=== PATIENT | female | born 1990 | race African-American/Black ===

== ENCOUNTER 2018-08-31 14:38 | Emergency (ER) | payer OTHER, MEDICAID, SELFPAY ==
[2018-08-31 14:45] VITALS: BP 130/73; PULSE 80; RESP 18; TEMP 36.8; O2SAT 100; BMI 47.7
--- NOTE | 2018-08-31 15:13 | ED.PREGNANCY ---
HPI - <MUMTAZ Everett - Last Filed: 08/31/18 21:50> General Chief complaint: Vaginal Bleeding Stated complaint: 9wks preg,spotting Time Seen by Provider: 08/31/18 15:13 Source: patient Mode of arrival: ambulatory Limitations: no limitations History of Present Illness HPI Narrative: 28-year-old healthy female that is an everyday smoker currently approximately 9 weeks she is 2 para 1. she is here for complaint of having vaginal bleeding earlier today that started early this morning around 330. she reports that it was slightly more bleeding than spotting. She reports that the bleeding has slowed down as of now. She also reports having pelvic cramping. She denies passing any tissue. She denies any trauma to the area. No urinary symptoms. She states last bowel movement was earlier today and was unremarkable. She reports that she had a small amount of bleeding earlier in the however this was resolved. She reports that she has had any ultrasound shows a healthy intrauterine . She denies any other concerns or complaints at this time. Complaint: vaginal bleeding Patient : Yes Related Data Home Medications Medication Instructions Recorded Confirmed No Known Home Medications 08/31/18 08/31/18 Allergies Allergy/AdvReac Type Severity Reaction Status Date / Time Penicillins Allergy Unknown Verified 08/31/18 17:40 Review of Systems <MUMTAZ Everett - Last Filed: 08/31/18 21:50> Constitutional Denies chills, Denies fever(s), Denies lethargy and Denies weakness Eyes Denies change in vision, Denies eye discharge, Denies irritation and Denies loss of vision ENT Ears, Nose, Mouth, and Throat: Denies change in voice, Denies neck pain and Denies sore throat Cardiovascular Denies chest pain, Denies irregular heart rhythm, Denies lightheadedness, Denies palpitations, Denies dyspnea, Denies dyspnea on exertion and Denies orthopnea Respiratory Denies cough, Denies dyspnea, Denies dyspnea on exertion and Denies wheezing Genitourinary Comments: Vaginal bleeding Musculoskeletal Denies neck pain Integumentary/Breasts Denies pruritus, Denies erythema, Denies rash and Denies wounds Neurologic Denies confusion, Denies loss of vision and Denies weakness Psychiatric Denies anxiety, Denies confusion, Denies depression, Denies homicidal ideation and Denies suicidal ideation Endocrine Denies palpitations Hematologic/Lymphatic Denies easy bruising Allergic/Immunologic Denies wheezing PMFSH - <MUMTAZ Everett - Last Filed: 08/31/18 21:50> Past Medical History Medical history: Reports no medical history Surgical history: Reports no surgical history Patient : Yes Psychiatric history: Reports no psych history Family history: Reports no significant family history Exam <MUMTAZ Everett - Last Filed: 08/31/18 21:50> Initial Vital Signs Initial Vital Signs: Vital Signs Temperature 98.3 F 08/31/18 14:45 Pulse Rate 80 08/31/18 14:45 Respiratory Rate 18 08/31/18 14:45 Blood Pressure 130/73 08/31/18 14:45 Pulse Oximetry 100 08/31/18 14:45 Const General: cooperative and well developed Nutritional Appearance: well nourished Orientation: alert, awake, oriented x3 and not confused HENMT Mouth: oral mucosae normal and moist mucous membranes Eyes Conjunctivae: conjunctivae normal Sclera: sclerae normal Pupils: PERRL EOM: EOM intact bilaterally Resp Effort & Inspection: normal respiratory effort, able to speak in complete sentences, no respiratory distress and no use of accessory muscles Auscultation: clear to auscultation bilaterally, no rales, no rhonchi and no wheezes Cardio Rate: regular rate Rhythm: regular rhythm Heart Sounds: no click, no gallops, no murmurs and no rubs Pulses: normal peripheral pulses GI Inspection: non-distended Palpation: soft, no hepatosplenomegaly, No guarding, No pulsatile mass and No tender Auscultation: normal bowel sounds General: No CVA tenderness Skin General: no rashes or lesions noted, No jaundice and No petechiae Neuro General: alert, oriented x3, gait normal and no focal motor deficits Speech: speech normal <Anthony Johnson DO - Last Filed: 09/01/18 07:15> Initial Vital Signs Initial Vital Signs: Vital Signs Temperature 98.3 F 08/31/18 14:45 Pulse Rate 80 08/31/18 14:45 Respiratory Rate 18 08/31/18 14:45 Blood Pressure 130/73 08/31/18 14:45 Pulse Oximetry 100 08/31/18 14:45 Course <MUMTAZ Everett - Last Filed: 08/31/18 21:50> Orders Ordered: ED Orders 08/31/18 16:10 US OB <= 14 weeks fetus Stat 08/31/18 16:17 ABO RH Type Stat Complete Blood Count AUTO DIFF Stat Comprehensive Metabolic Panel Stat HCG Quantitative Stat Vital Signs - 8 hr 08/31/18 14:45 Temperature 98.3 F Pulse Rate 80 Respiratory Rate 18 Blood Pressure 130/73 Pulse Oximetry 100 <Anthony Johnson DO - Last Filed: 09/01/18 07:15> Orders Ordered: ED Orders 08/31/18 16:10 US OB <= 14 weeks fetus Stat 08/31/18 16:17 ABO RH Type Stat Complete Blood Count AUTO DIFF Stat Comprehensive Metabolic Panel Stat HCG Quantitative Stat Vital Signs - 8 hr 08/31/18 14:45 Temperature 98.3 F Pulse Rate 80 Respiratory Rate 18 Blood Pressure 130/73 Pulse Oximetry 100 MDM - OB/Uterine Contractions <MUMTAZ Everett - Last Filed: 08/31/18 21:50> Lab Data Result diagrams: 08/31/18 16:17 08/31/18 16:17 Lab Results 08/31/18 08/31/18 08/31/18 Range/Units 16:17 16:17 16:17 WBC 15.5 H (4.5-11.0) X10^3/uL RBC 4.38 (4.0-5.2) X10^6/uL Hgb 10.9 L (12.0-16.0) g/dL Hct 34.1 L (36-46) % MCV 78.0 L (80-100) fL MCH 24.9 L (26-34) PG MCHC 31.9 (30-36) % RDW 17.0 H (11.6-14.8) % Plt Count 400 (150-400) X10^3/uL Neut % (Auto) 70.0 (50-75) % Lymph % (Auto) 18.4 L (25-40) % [place] % (Auto) 7.1 (3-14) % Eos % (Auto) 3.5 (2-4) % Baso % (Auto) 1.0 (0-2) % Neut # (Auto) 43878 H (9640-0223) /uL Sodium 141 (137-145) mmol/L Potassium 4.3 (3.4-5.1) mmol/L Chloride 103 (98-107) mmol/L Carbon Dioxide 26 (22-32) mmol/L BUN 6 L (7-17) mg/dL Creatinine 0.50 L (0.52-1.04) mg/dL Estimated GFR > 60.0 (>60) mL/min BUN/Creatinine Ratio 12.0 (6-22) Glucose 82 (70-100) mg/dL Calcium 9.0 (8.4-10.2) mg/dL Total Bilirubin 0.2 (0.2-1.3) mg/dL AST 24 (14-36) IU/L ALT 30 (9-52) IU/L Alkaline Phosphatase 67 (38-126) U/L Total Protein 7.7 (6.3-8.2) g/dL Albumin 4.2 (3.5-5.0) g/dL Globulin 3.5 (1.7-4.1) g/dL Albumin/Globulin Ratio 1.2 (1.0-2.8) HCG, Quant 11649 mIU/mL Blood Type O Positive Point of Care Testing Test Results Positive Urine Dip Bedside Urine Glucose Negative Bedside Urine Bilirubin - Negative Bedside Urine Ketone - Negative Urine Specific [place] 1.015 Bedside Urine Occult Blood - Negative Bedside Urine pH 7.0 Bedside Urine Protein - Negative Bedside Urine Urobilinogen - Negative Bedside Urine Nitrite - Negative Bedside Urine Leukocytes - Negative Esterase MDM Narrative Medical decision making narrative: CBC shows elevated white count and neutrophils most likely secondary to . H&H shows mild anemia. CBC otherwise unremarkable. Chemistry panel was obtained was negative for any acute findings. HCG quant was at 51 k. Blood type is O positive. of Ob ultrasound shows healthy intrauterine with normal heart rate with gestational age of approximately 10 weeks 5 days and estimated delivery date of March 24. Will have patient follow up with OB here in the next couple of days for re-evaluation. Pelvic rest. [id number] Tylenol as needed for any discomfort. For any worsening symptoms return to the emergency room. Pelvic ultrasound also shows a small perigestational subchorionic hematoma. <Anthony Johnson DO - Last Filed: 09/01/18 07:15> Lab Data Lab Results 08/31/18 08/31/18 08/31/18 Range/Units 16:17 16:17 16:17 WBC 15.5 H (4.5-11.0) X10^3/uL RBC 4.38 (4.0-5.2) X10^6/uL Hgb 10.9 L (12.0-16.0) g/dL Hct 34.1 L (36-46) % MCV 78.0 L (80-100) fL MCH 24.9 L (26-34) PG MCHC 31.9 (30-36) % RDW 17.0 H (11.6-14.8) % Plt Count 400 (150-400) X10^3/uL Neut % (Auto) 70.0 (50-75) % Lymph % (Auto) 18.4 L (25-40) % [place] % (Auto) 7.1 (3-14) % Eos % (Auto) 3.5 (2-4) % Baso % (Auto) 1.0 (0-2) % Neut # (Auto) 27293 H (2453-9627) /uL Sodium 141 (137-145) mmol/L Potassium 4.3 (3.4-5.1) mmol/L Chloride 103 (98-107) mmol/L Carbon Dioxide 26 (22-32) mmol/L BUN 6 L (7-17) mg/dL Creatinine 0.50 L (0.52-1.04) mg/dL Estimated GFR > 60.0 (>60) mL/min BUN/Creatinine Ratio 12.0 (6-22) Glucose 82 (70-100) mg/dL Calcium 9.0 (8.4-10.2) mg/dL Total Bilirubin 0.2 (0.2-1.3) mg/dL AST 24 (14-36) IU/L ALT 30 (9-52) IU/L Alkaline Phosphatase 67 (38-126) U/L Total Protein 7.7 (6.3-8.2) g/dL Albumin 4.2 (3.5-5.0) g/dL Globulin 3.5 (1.7-4.1) g/dL Albumin/Globulin Ratio 1.2 (1.0-2.8) HCG, Quant 68756 mIU/mL Blood Type O Positive Point of Care Testing Test Results Positive Urine Dip Bedside Urine Glucose Negative Bedside Urine Bilirubin - Negative Bedside Urine Ketone - Negative Urine Specific [place] 1.015 Bedside Urine Occult Blood - Negative Bedside Urine pH 7.0 Bedside Urine Protein - Negative Bedside Urine Urobilinogen - Negative Bedside Urine Nitrite - Negative Bedside Urine Leukocytes - Negative Esterase Discharge Plan Departure Patient Disposition: Home Clinical Impression: Threatened Discharge Date/Time: 08/31/18 18:40 Interventions: ED Discharge Assessment Last Done: 08/31/18 18:39 Instructions: DI for Threatened Activity Restrictions/Additional Instructions: laboratory results today show mild anemia otherwise is unremarkable. OB ultrasound shows intrauterine of approximately 10 weeks 5 days gestational age. This places delivery date at March 24. ultrasound also shows a small subchorionic hematoma. there is a risk for a threatened . Pelvic rest. Follow up with her OB in the next couple days for re-evaluation. For any worsening symptoms return emergency room. Use [id number] Tylenol as needed for any disc Prescriptions: No Action No Known Home Medications RF: 0 Referrals: [facility] [Provider Group] Stand Alone Forms: Work/School Restrictions <Anthony Johnson DO - Last Filed: 09/01/18 07:15> Cosign ED Attending Carmelita Attestation: I was available for consultation during this patient's emergency department encounter
--- NOTE | 2018-08-31 16:10 | DI.US.S_ITS ---
PROCEDURE: US OB <= 14 WEEKS FETUS INDICATIONS: Vaginal spotting/ bleeding and cramping approximately 9 wk OUTSIDE/PRIOR DATING DATA: Last menstrual period (LMP): 06/19/18. LMP-based estimated date of delivery (TYRON): 03/26/19. First dating scan (date and location): 08/31/18. Estimated date of delivery (TYRON) from first dating scan: 03/24/19. TECHNIQUE: Real-time scanning was performed of the fetus and maternal pelvic organs, with image documentation. Endovaginal scanning was also performed to better visualize the fetus and maternal ovaries. COMPARISON: None. FINDINGS: Embryo: There is an intrauterine with a gestational sac, yolk sac, and pole identified. There is heart motion with a rate of 173 beats per minute. The crown-rump length measures 3.8 cm corresponding to a gestational age of 10 weeks 5 days. There is a small subchorionic hemorrhage measuring approximately 2.2 x 1.0 x 1.4 cm. Measurement variability in dating: +/- 4 weeks by LMP, +/- 7 days by mean sac diameter (use before 6 weeks gestation if crown-rump length not able to be measured), +/- 5 days by crown-rump length (up to 8 weeks 6 days gestation), +/- 7 days by crown-rump length (up to 13 weeks 6 days gestation). Maternal organs: Ovaries were not well-visualized. Limited images through the kidneys demonstrate no hydronephrosis. IMPRESSION: 1. Single living intrauterine with calculated gestational age of 10 weeks 5 days corresponding to an estimated delivery date of 03/24/19, concordant with patient's dates by LMP. 2. Small perigestational subchorionic hematoma. Dictated by: Jimmy Dai M.D. on 08/31/2018 at 18:08 Approved by: Jimmy Dai M.D. on 08/31/2018 at 18:11
[2018-08-31 16:31] LABS: Add Manual Diff / Slide Review NO; Eosinophils Percent Auto 3.5 % (2-4); Hematocrit 34.1 % (36-46); Hemoglobin 10.9 g/dL (12.0-16.0); Lymphocytes Percent Auto 18.4 % (25-40); Mean Corpuscular HGB Conc 31.9 % (30-36); Mean Corpuscular Hemoglobin 24.9 PG (26-34); Monocytes Percent Auto 7.1 % (3-14); Neutrophils Absolute Auto 10800 /uL (3000-5900); Platelet Count 400 X10^3/uL (150-400); Red Blood Cell Count 4.38 X10^6/uL (4.0-5.2); White Blood Cell Count 15.5 X10^3/uL (4.5-11.0)
[2018-08-31 16:38] LABS: Alanine Aminotransferase 30 IU/L (9-52); Albumin 4.2 g/dL (3.5-5.0); Albumin Globulin Ratio 1.2 (1.0-2.8); Alkaline Phosphatase 67 U/L (38-126); Aspartate Aminotransferase 24 IU/L (14-36); Bilirubin Total 0.2 mg/dL (0.2-1.3); Blood Urea Nitrogen 6 mg/dL (7-17); Carbon Dioxide 26 mmol/L (22-32); Chloride 103 mmol/L (98-107); Estimated Glomerular Filt Rate > 60.0 mL/min (>60); Globulin 3.5 g/dL (1.7-4.1); Glucose 82 mg/dL (70-100); HEMOLYSIS < 15 (0-50); Potassium 4.3 mmol/L (3.4-5.1); Sodium 141 mmol/L (137-145); Total Protein 7.7 g/dL (6.3-8.2)
[2018-08-31 17:18] LABS: HCG Quantitative /Beta subunit 51041 mIU/mL
--- NOTE | 2018-08-31 17:36 | ED_ITS ---
HPI - <MUMTAZ Everett - Last Filed: 08/31/18 21:50> General Chief complaint: Vaginal Bleeding Stated complaint: 9wks preg,spotting Time Seen by Provider: 08/31/18 15:13 Source: patient Mode of arrival: ambulatory Limitations: no limitations History of Present Illness HPI Narrative: 28-year-old healthy female that is an everyday smoker currently approximately 9 weeks she is 2 para 1. she is here for complaint of having vaginal bleeding earlier today that started early this morning around 330. she reports that it was slightly more bleeding than spotting. She reports that the bleeding has slowed down as of now. She also reports having pelvic cramping. She denies passing any tissue. She denies any trauma to the area. No urinary symptoms. She states last bowel movement was earlier today and was unremarkable. She reports that she had a small amount of bleeding earlier in the however this was resolved. She reports that she has had any ultrasound shows a healthy intrauterine . She denies any other concerns or complaints at this time. Complaint: vaginal bleeding Patient : Yes Related Data Home Medications Medication Instructions Recorded Confirmed No Known Home Medications 08/31/18 08/31/18 Allergies Allergy/AdvReac Type Severity Reaction Status Date / Time Penicillins Allergy Unknown Verified 08/31/18 17:40 Review of Systems <MUMTAZ Everett - Last Filed: 08/31/18 21:50> Constitutional Denies chills, Denies fever(s), Denies lethargy and Denies weakness Eyes Denies change in vision, Denies eye discharge, Denies irritation and Denies loss of vision ENT Ears, Nose, Mouth, and Throat: Denies change in voice, Denies neck pain and Denies sore throat Cardiovascular Denies chest pain, Denies irregular heart rhythm, Denies lightheadedness, Denies palpitations, Denies dyspnea, Denies dyspnea on exertion and Denies orthopnea Respiratory Denies cough, Denies dyspnea, Denies dyspnea on exertion and Denies wheezing Genitourinary Comments: Vaginal bleeding Musculoskeletal Denies neck pain Integumentary/Breasts Denies pruritus, Denies erythema, Denies rash and Denies wounds Neurologic Denies confusion, Denies loss of vision and Denies weakness Psychiatric Denies anxiety, Denies confusion, Denies depression, Denies homicidal ideation and Denies suicidal ideation Endocrine Denies palpitations Hematologic/Lymphatic Denies easy bruising Allergic/Immunologic Denies wheezing PMFSH - <MUMTAZ Everett - Last Filed: 08/31/18 21:50> Past Medical History Medical history: Reports no medical history Surgical history: Reports no surgical history Patient : Yes Psychiatric history: Reports no psych history Family history: Reports no significant family history Exam <MUMTAZ Evertet - Last Filed: 08/31/18 21:50> Initial Vital Signs Initial Vital Signs: Vital Signs Temperature 98.3 F 08/31/18 14:45 Pulse Rate 80 08/31/18 14:45 Respiratory Rate 18 08/31/18 14:45 Blood Pressure 130/73 08/31/18 14:45 Pulse Oximetry 100 08/31/18 14:45 Const General: cooperative and well developed Nutritional Appearance: well nourished Orientation: alert, awake, oriented x3 and not confused HENMT Mouth: oral mucosae normal and moist mucous membranes Eyes Conjunctivae: conjunctivae normal Sclera: sclerae normal Pupils: PERRL EOM: EOM intact bilaterally Resp Effort & Inspection: normal respiratory effort, able to speak in complete sentences, no respiratory distress and no use of accessory muscles Auscultation: clear to auscultation bilaterally, no rales, no rhonchi and no wheezes Cardio Rate: regular rate Rhythm: regular rhythm Heart Sounds: no click, no gallops, no murmurs and no rubs Pulses: normal peripheral pulses GI Inspection: non-distended Palpation: soft, no hepatosplenomegaly, No guarding, No pulsatile mass and No tender Auscultation: normal bowel sounds General: No CVA tenderness Skin General: no rashes or lesions noted, No jaundice and No petechiae Neuro General: alert, oriented x3, gait normal and no focal motor deficits Speech: speech normal <Anthony Johnson DO - Last Filed: 09/01/18 07:15> Initial Vital Signs Initial Vital Signs: Vital Signs Temperature 98.3 F 08/31/18 14:45 Pulse Rate 80 08/31/18 14:45 Respiratory Rate 18 08/31/18 14:45 Blood Pressure 130/73 08/31/18 14:45 Pulse Oximetry 100 08/31/18 14:45 Course <MUMTAZ Everett - Last Filed: 08/31/18 21:50> Orders Ordered: ED Orders 08/31/18 16:10 US OB <= 14 weeks fetus Stat 08/31/18 16:17 ABO RH Type Stat Complete Blood Count AUTO DIFF Stat Comprehensive Metabolic Panel Stat HCG Quantitative Stat Vital Signs - 8 hr 08/31/18 14:45 Temperature 98.3 F Pulse Rate 80 Respiratory Rate 18 Blood Pressure 130/73 Pulse Oximetry 100 <Anthony Johnson DO - Last Filed: 09/01/18 07:15> Orders Ordered: ED Orders 08/31/18 16:10 US OB <= 14 weeks fetus Stat 08/31/18 16:17 ABO RH Type Stat Complete Blood Count AUTO DIFF Stat Comprehensive Metabolic Panel Stat HCG Quantitative Stat Vital Signs - 8 hr 08/31/18 14:45 Temperature 98.3 F Pulse Rate 80 Respiratory Rate 18 Blood Pressure 130/73 Pulse Oximetry 100 MDM - OB/Uterine Contractions <MUMTAZ Everett - Last Filed: 08/31/18 21:50> Lab Data Result diagrams: 08/31/18 16:17 08/31/18 16:17 Lab Results 08/31/18 08/31/18 08/31/18 Range/Units 16:17 16:17 16:17 WBC 15.5 H (4.5-11.0) X10^3/uL RBC 4.38 (4.0-5.2) X10^6/uL Hgb 10.9 L (12.0-16.0) g/dL Hct 34.1 L (36-46) % MCV 78.0 L (80-100) fL MCH 24.9 L (26-34) PG MCHC 31.9 (30-36) % RDW 17.0 H (11.6-14.8) % Plt Count 400 (150-400) X10^3/uL Neut % (Auto) 70.0 (50-75) % Lymph % (Auto) 18.4 L (25-40) % [place] % (Auto) 7.1 (3-14) % Eos % (Auto) 3.5 (2-4) % Baso % (Auto) 1.0 (0-2) % Neut # (Auto) 77946 H (5206-8316) /uL Sodium 141 (137-145) mmol/L Potassium 4.3 (3.4-5.1) mmol/L Chloride 103 (98-107) mmol/L Carbon Dioxide 26 (22-32) mmol/L BUN 6 L (7-17) mg/dL Creatinine 0.50 L (0.52-1.04) mg/dL Estimated GFR > 60.0 (>60) mL/min BUN/Creatinine Ratio 12.0 (6-22) Glucose 82 (70-100) mg/dL Calcium 9.0 (8.4-10.2) mg/dL Total Bilirubin 0.2 (0.2-1.3) mg/dL AST 24 (14-36) IU/L ALT 30 (9-52) IU/L Alkaline Phosphatase 67 (38-126) U/L Total Protein 7.7 (6.3-8.2) g/dL Albumin 4.2 (3.5-5.0) g/dL Globulin 3.5 (1.7-4.1) g/dL Albumin/Globulin Ratio 1.2 (1.0-2.8) HCG, Quant 09892 mIU/mL Blood Type O Positive Point of Care Testing Test Results Positive Urine Dip Bedside Urine Glucose Negative Bedside Urine Bilirubin - Negative Bedside Urine Ketone - Negative Urine Specific [place] 1.015 Bedside Urine Occult Blood - Negative Bedside Urine pH 7.0 Bedside Urine Protein - Negative Bedside Urine Urobilinogen - Negative Bedside Urine Nitrite - Negative Bedside Urine Leukocytes - Negative Esterase MDM Narrative Medical decision making narrative: CBC shows elevated white count and neutrophils most likely secondary to . H&H shows mild anemia. CBC otherwise unremarkable. Chemistry panel was obtained was negative for any acute findings. HCG quant was at 51 k. Blood type is O positive. of Ob ultrasound shows healthy intrauterine with normal heart rate with gestational age of approximately 10 weeks 5 days and estimated delivery date of March 24. Will have patient follow up with OB here in the next couple of days for re-evaluation. Pelvic rest. [id number] Tylenol as needed for any discomfort. For any worsening symptoms return to the emergency room. Pelvic ultrasound also shows a small perigestational subchorionic hematoma. <Anthony Johnson DO - Last Filed: 09/01/18 07:15> Lab Data Lab Results 08/31/18 08/31/18 08/31/18 Range/Units 16:17 16:17 16:17 WBC 15.5 H (4.5-11.0) X10^3/uL RBC 4.38 (4.0-5.2) X10^6/uL Hgb 10.9 L (12.0-16.0) g/dL Hct 34.1 L (36-46) % MCV 78.0 L (80-100) fL MCH 24.9 L (26-34) PG MCHC 31.9 (30-36) % RDW 17.0 H (11.6-14.8) % Plt Count 400 (150-400) X10^3/uL Neut % (Auto) 70.0 (50-75) % Lymph % (Auto) 18.4 L (25-40) % [place] % (Auto) 7.1 (3-14) % Eos % (Auto) 3.5 (2-4) % Baso % (Auto) 1.0 (0-2) % Neut # (Auto) 30868 H (8267-8798) /uL Sodium 141 (137-145) mmol/L Potassium 4.3 (3.4-5.1) mmol/L Chloride 103 (98-107) mmol/L Carbon Dioxide 26 (22-32) mmol/L BUN 6 L (7-17) mg/dL Creatinine 0.50 L (0.52-1.04) mg/dL Estimated GFR > 60.0 (>60) mL/min BUN/Creatinine Ratio 12.0 (6-22) Glucose 82 (70-100) mg/dL Calcium 9.0 (8.4-10.2) mg/dL Total Bilirubin 0.2 (0.2-1.3) mg/dL AST 24 (14-36) IU/L ALT 30 (9-52) IU/L Alkaline Phosphatase 67 (38-126) U/L Total Protein 7.7 (6.3-8.2) g/dL Albumin 4.2 (3.5-5.0) g/dL Globulin 3.5 (1.7-4.1) g/dL Albumin/Globulin Ratio 1.2 (1.0-2.8) HCG, Quant 15969 mIU/mL Blood Type O Positive Point of Care Testing Test Results Positive Urine Dip Bedside Urine Glucose Negative Bedside Urine Bilirubin - Negative Bedside Urine Ketone - Negative Urine Specific [place] 1.015 Bedside Urine Occult Blood - Negative Bedside Urine pH 7.0 Bedside Urine Protein - Negative Bedside Urine Urobilinogen - Negative Bedside Urine Nitrite - Negative Bedside Urine Leukocytes - Negative Esterase Discharge Plan Departure Patient Disposition: Home Clinical Impression: Threatened Discharge Date/Time: 08/31/18 18:40 Interventions: ED Discharge Assessment Last Done: 08/31/18 18:39 Instructions: DI for Threatened Activity Restrictions/Additional Instructions: laboratory results today show mild anemia otherwise is unremarkable. OB ultrasound shows intrauterine of approximately 10 weeks 5 days gestational age. This places delivery date at March 24. ultrasound also shows a small subchorionic hematoma. there is a risk for a threatened . Pelvic rest. Follow up with her OB in the next couple days for re- evaluation. For any worsening symptoms return emergency room. Use over-the- counter Tylenol as needed for any disc Prescriptions: No Action No Known Home Medications RF: 0 Referrals: [facility] [Provider Group] Stand Alone Forms: Work/School Restrictions <Anthony Johnson DO - Last Filed: 09/01/18 07:15> Cosign ED Attending Carmelita Attestation: I was available for consultation during this patient's emergency department encounter
== END 2018-08-31 18:40 | disposition home or self-care (01) ==
PROVIDERS: Emergency Provider Nurse Practitioner Family
DX: O20.0 Threatened abortion (principal); Z3A.09 9 weeks gestation of pregnancy
CPT/HCPCS: 36415; 76801; 76817; 80053; 81003; 81025; 84702; 85025; 86900; 86901; 99282; 99284

== ENCOUNTER 2019-11-19 16:47 | Emergency (ER) | payer OTHER, MEDICAID, SELFPAY ==
[2019-11-19 16:50] VITALS: BP 166/107; PULSE 90; RESP 18; TEMP 36.7; O2SAT 100; BMI 47.4
--- NOTE | 2019-11-19 17:38 | ED.DENTAL ---
HPI - Dental/Oral <MUMTAZ Frost - Last Filed: 11/19/19 23:06> General Chief complaint: Dental/Oral Stated complaint: states broken tooth, lots of pain Time Seen by Provider: 11/19/19 17:00 Source: patient Mode of arrival: Ambulatory Limitations: no limitations History of Present Illness HPI Narrative: This is a 29-year-old female, smoker, who presents to ED with left lower tooth ache. Patient states her left lower tooth had broken off 3 days ago and partial 2 to has been removed. Patient started clindamycin antibiotic medication today and she has an appointment with dentist at [facility] in [place] in about a week for for an evaluation and possible extraction. Patient reports has been taking Tylenol and Motrin around the clock. Patient has been taking 1 tab of extra-strength and Motrin, , unknown dose, 3 times a day with minimum pain management. Patient denies fever, chills, nausea or vomiting. Patient denies facial redness, pain or swelling, or drainage from a tooth. Reports pain currently as 06/12. Related Data Home Medications Medication Instructions Recorded Confirmed acetaminophen 500 mg PO Q4-6H PRN 11/19/19 11/19/19 clindamycin HCl 300 mg PO QID 11/19/19 ibuprofen 800 mg PO TID 11/19/19 11/19/19 Previous Rx's Medication Instructions Recorded hydrocodone-acetaminophen [[place]] 1 tab PO Q8H PRN #7 tab 11/19/19 Allergies Allergy/AdvReac Type Severity Reaction Status Date / Time Penicillins Allergy Unknown Verified 08/31/18 17:40 Review of Systems <MUMTAZ Frost - Last Filed: 11/19/19 23:06> Review of Systems Narrative: General: Denies fever, chills, fatigue, malaise, sweats. HEENT: See HPI Respiratory: Denies dyspnea, cough, wheezing, hemoptysis, sputum. Cardiovascular: Denies chest pain, palpitations, orthopnea, edema. Gastrointestinal: Denies nausea, vomiting, abdominal pain, diarrhea, constipation, melena. : Denies dysuria, frequency, incontinence, hematuria, urinary retention. Musculoskeletal: Denies weakness, joint pain or bony pain. Skin: Denies rash, skin lesions, or other. Neurologic: Denies weakness, headache, numbness, change in speech, confusion, seizures, incoordination. Psychiatric: No concerning psychosocial issues. 12-point review of systems is negative except for those stated above. Patient History <MUMTAZ Frost - Last Filed: 11/19/19 23:06> Medical History Asthma (Acute) Social History Smoking Status: Current every day smoker Smoking Status: Current every day smoker alcohol intake frequency: 0-2 drinks per day Substance Use Type: marijuana Exam <MUMTAZ Frost - Last Filed: 11/19/19 23:06> Narrative Exam Narrative: General appearance: well developed, well nourished, in moderate distress. Head: normocephalic, atraumatic, no scalp lesions, non-tender. ENT: Bilateral auditory canals and tympanic membranes clear. Hearing grossly intact. Nose without bleeding, purulent discharge, septal hematoma or deviation. Turbinate without erythema or swelling. Facial sinuses nontender to palpate. Mucous membrane moist, no mucosal lesion. Throat without erythema, tonsillar hypertrophy or exudate. Uvula in midline, airway patent. Partially fractured and extracted left lower 19th tooth. No edema, warmth to left side face. Neck/Thyroid: neck supple, full range of motion, no visible masses or meningeal signs. No JVD, non-tender without lymphadenopathy. Skin: no suspicious rashes, lesions over visible areas. Warm and dry and appropriate color for ethnicity. Heart: no clubbing, no cyanosis, no edema. S1 and S2 normal. RRR w/o murmurs, clicks, or bruits. Lungs: Breathing even and unlabored. No stridor. No accessory muscles used. Able to speak in full sentences. Chest: normal shape and expansion. Abdomen: non-obese, non-distended. Neurologic: alert and oriented. Cognitive exam, UTILITY AIDE and PNS grossly intact on informal exam. Psych: good eye contact, normal affect. Initial Vital Signs Initial Vital Signs: Vital Signs Temperature 98.1 F 11/19/19 16:50 Pulse Rate 90 11/19/19 16:50 Respiratory Rate 18 11/19/19 16:50 Blood Pressure 166/107 H 11/19/19 16:50 Pulse Oximetry 100 11/19/19 16:50 <Leti Main DO - Last Filed: 11/20/19 07:16> Initial Vital Signs Initial Vital Signs: Vital Signs Temperature 98.1 F 11/19/19 16:50 Pulse Rate 90 11/19/19 16:50 Respiratory Rate 18 11/19/19 16:50 Blood Pressure 166/107 H 11/19/19 16:50 Pulse Oximetry 100 11/19/19 16:50 Scores <MUMTAZ Frost - Last Filed: 11/19/19 23:06> GCS Eric coma scale eye opening: Spontaneous [place] coma scale verbal response: Orientated [place] coma scale motor response: Obey commands [place] coma scale total score: 15 Course <MUMTAZ Frost - Last Filed: 11/19/19 23:06> Orders Ordered: Discontinued Medications Acetaminophen (Tylenol) 650 mg PO NOW ONE Stop: 11/19/19 17:38 Last Admin: 11/19/19 17:58 Dose: 650 mg Documented by: SU Ibuprofen (Advil) 800 mg PO NOW ONE Stop: 11/19/19 17:38 Last Admin: 11/19/19 17:57 Dose: 800 mg Documented by: SU Vital Signs Vital signs: Vital Signs - 8 hr 11/19/19 16:50 11/19/19 17:58 Temperature 98.1 F Pulse Rate 90 79 Respiratory Rate 18 Blood Pressure 166/107 H Blood Pressure [Left Arm] 144/95 H Pulse Oximetry 100 99 <Leti Main DO - Last Filed: 11/20/19 07:16> Orders Ordered: Discontinued Medications Acetaminophen (Tylenol) 650 mg PO NOW ONE Stop: 11/19/19 17:38 Last Admin: 11/19/19 17:58 Dose: 650 mg Documented by: SU Ibuprofen (Advil) 800 mg PO NOW ONE Stop: 11/19/19 17:38 Last Admin: 11/19/19 17:57 Dose: 800 mg Documented by: SU Vital Signs Vital signs: Vital Signs - 8 hr 11/19/19 16:50 11/19/19 17:58 Temperature 98.1 F Pulse Rate 90 79 Respiratory Rate 18 Blood Pressure 166/107 H Blood Pressure [Left Arm] 144/95 H Pulse Oximetry 100 99 [facility] - Dental/Oral <MUMTAZ Frost - Last Filed: 11/19/19 23:06> Differential Diagnosis Differential diagnosis: Likely toothache and fracture of tooth Medical Records Attestation: I reviewed the patient's medical records. [facility] Narrative Medical decision making narrative: This is a 29-year-old female presents to ED with left lower tooth ache for last 3 days with a partial fracture. Patient has an appointment at [facility] in about a week and just started clindamycin today. Patient has been taking Tylenol and Motrin however underdosed. Patient was medicated with Tylenol and Motrin while in ED. Left side face w/o signs of infection/cellulitis. Patient afebrile. Discussed appropriate dosing and frequency with patient. Patient discharged to home with few tabs of [place] for severe pain and discussed narcotic medication precautions. Patient advised to follow up with the [facility] as scheduled and return precautions were discussed with the patient. Patient verbalized understanding and agrees with the treatment plan. Discharge Plan Departure Patient Disposition: Home Clinical Impression: Fracture of tooth (traumatic), initial encounter for open fracture, Pain in tooth Discharge Date/Time: 11/19/19 18:06 Activity Restrictions/Additional Instructions: You have been diagnosed with [left lower tooth ache and partial fracture]. What to do: *Take your medications as directed. Please continue to take [id number] Tylenol and Motrin for your discomfort. Tylenol up to 4000 mg in 24 hour period. Two tabs of extra-strength every 6 hours. Ibuprofen 600-800 mg 3 times a day as needed for discomfort with food. [place] 1 tab every 8 hours as needed for discomfort. This medication may cause drowsiness so please do not drive, drink alcohol or operate heavy equipments. It can cause constipation as well. [place] is for severe pain. *Follow up with dentist at [facility] as scheduled. Let them know you were seen in the ED and that we asked you to be seen in follow up. *Return to ED if you have any new, worsening, or concerning symptoms, such as [chest pain, breathing difficulty, fever, unable to tolerate fluids or any acute concerns]. Prescriptions: New hydrocodone-acetaminophen [[place]] 5-325 mg tablet 1 tab PO Q8H PRN (Reason: pain) Qty: 7 RF: 0 No Action clindamycin HCl 300 mg capsule 300 mg PO QID RF: 0 ibuprofen 800 mg tablet 800 mg PO TID RF: 0 acetaminophen 500 mg tablet 500 mg PO Q4-6H PRN (Reason: pain) RF: 0 Stand Alone Forms: Work Release Note
[2019-11-19] MEDS: IBUPROFEN 400 MG TABLET 800 MG PO (17:57)
[2019-11-19 17:58] VITALS: BP 144/95; PULSE 79; O2SAT 99
[2019-11-19] MEDS: ACETAMINOPHEN 325 MG TABLET 650 MG PO (17:58)
== END 2019-11-19 18:06 | disposition home or self-care (01) ==
PROVIDERS: Emergency Provider Nurse Practitioner Family
DX: S02.5XXB Fracture of tooth (traumatic), initial encounter for open fracture (principal); K08.89 Other specified disorders of teeth and supporting structures
CPT/HCPCS: 99283

== ENCOUNTER 2020-12-29 16:28 | Emergency (ER) | payer OTHER, MEDICAID, SELFPAY ==
[2020-12-29 16:41] VITALS: BP 158/90; PULSE 91; RESP 18; TEMP 36.4; O2SAT 100; BMI 51.6
--- NOTE | 2020-12-29 20:58 | ED.BACK ---
HPI - Back Pain/Injury General Chief Complaint: Back Pain/Injury Stated Complaint: SEVERE BACK PAIN Time Seen by Provider: 12/29/20 20:30 Source: patient and old records reviewed Mode of arrival: Ambulatory Limitations: no limitations History of Present Illness HPI Narrative: This is a 30-year-old female comes in with complaint of severe back pain which she states is up and down the entire spine, and a little to the right and indicates over the SI joint area. Patient states she has had this on off longstanding. She actually has an appointment around January 11 for follow-up with her physician as well as x-ray imaging. Patient states she had imaging possibly 10 years ago she is not sure of the exact timing. She was told there was some curve but no other major changes at that time. She denies fevers, denies any loss of sensation, tingling or numbness. She she states she has a little bit of weakness in her lower extremities bilaterally when her pain is at its worst. She denies any saddle anesthesia, no bowel or bladder incontinence. She denies any radiation of pain down her lower extremities. 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 She does not recall any specific incident worsened her pain. She has been trying Tylenol ibuprofen [id number] with minimal improvement. She is prescribed meloxicam which has not been very helpful her last dose was 2 days ago. She denies any urinary symptoms, no frequency, dysuria urgency. No issues with bowel movements. She is currently on her menses. She denies any other medical issues. States she is not on any other medications. Positive for tobacco, occasional alcohol, denies illicit. Related Data Home Medications Medication Instructions Recorded Confirmed acetaminophen 500 mg PO Q4-6H PRN 11/19/19 11/19/19 ibuprofen 800 mg PO TID 11/19/19 11/19/19 meloxicam 7.5 mg PO BID 12/29/20 12/29/20 Previous Rx's Medication Instructions Recorded cyclobenzaprine 10 mg PO TID PRN #14 tab 12/29/20 Allergies Allergy/AdvReac Type Severity Reaction Status Date / Time Penicillins Allergy Unknown Verified 12/29/20 16:44 Review of Systems Review of Systems ROS Unobtainable: All systems reviewed & are unremarkable except as noted in HPI and below Patient History Medical History Asthma Social History Smoking Status: Current every day smoker Smoking Status: Current every day smoker tobacco type: cigarettes alcohol intake frequency: holidays/special occasions only Substance Use Type: does not use Exam Narrative Exam Narrative: GENERAL: Alert and oriented x three, obese female in mild distress. Patient is sitting in a chair in the room. HEENT: Head normocephalic, atraumatic, EOMI, pupils reactive, face symmetric, moist mucous membranes NECK: Supple, full range of motion CARDIOVASCULAR: Regular rate and rhythm without murmurs, rubs or gallops. RESPIRATORY: Breath sounds equal bilaterally, no wheezes rales or rhonchi. ABDOMEN: Soft, nontender. Normoactive bowel sounds all 4 quadrants. No guarding or rebound, rigidity, no mass : No CVA tenderness BACK: No cervical, thoracic or lumbar vertebral point tenderness. Patient does have some increased pain at the right sacroiliac joint. Patient has mildly decreased range of motion. Patient's gait is normal. Rectal exam is deferred. Muscle strength is 5/5 in lower extremities. 2+ pulses bilateral lower extremities. Sensation is intact in the lower extremities. EXTREMITIES: Normal range of motion, no clubbing or edema. Neurovascularly intact NEUROLOGICAL: Cranial nerves II through XII grossly intact. Moving all extremities SKIN: Warm, dry, no petechiae, no rashes or lesions. Initial Vital Signs Initial Vital Signs: Vital Signs Temperature 97.6 F 12/29/20 16:41 Pulse Rate 91 H 12/29/20 16:41 Respiratory Rate 18 12/29/20 16:41 Blood Pressure 158/90 H 12/29/20 16:41 Pulse Oximetry 100 12/29/20 16:41 Course Orders Ordered: Discontinued Medications Hydrocodone Bitart/Acetaminophen (Hydrocodone/Acet 5/325 Prepack) 1 bottle MISC SEEINSTR ONE Stop: 12/29/20 21:20 Last Admin: 12/29/20 21:23 Dose: 1 bottle Documented by: BRITT Ketorolac Tromethamine (Ketorolac 60 Mg/2 Ml Vial) 30 mg IM NOW ONE Stop: 12/29/20 21:20 Last Admin: 12/29/20 21:23 Dose: 30 mg Documented by: BRITT Vital Signs Vital signs: Vital Signs - 8 hr 12/29/20 21:33 Pulse Rate 74 Respiratory Rate 16 Blood Pressure 120/90 Pulse Oximetry 99 [facility] - Back Pain/Injury Lab Data Labs: Point of Care Testing Test Results Negative Urine Dip Bedside Urine Glucose Negative Bedside Urine Bilirubin - Negative Bedside Urine Ketone - Negative Urine Specific Candia 1.015 Bedside Urine Occult Blood +++ Bedside Urine pH 8.0 Bedside Urine Protein +/- 15 Bedside Urine Urobilinogen +/- 1mg Bedside Urine Nitrite - Negative Bedside Urine Leukocytes - Negative Esterase [facility] Narrative Medical decision making narrative: TORITO CASTRO. no findings. 30-year-old female with acute on chronic exacerbation of low back pain with imaging greater than 10 years ago. Patient states she has imaging coming up this month that she defers performing any today. She has no red flag changes today. She has tried [id number] NSAIDs, Tylenol as well as meloxicam by prescription without improvement. She did have hematuria but is currently on her menses. Her physical exam otherwise is not emergent. Plan to try muscle relaxant she does have a lot of spasm, given a prepack for [place] and a dose of Toradol here. Return precautions given and patient has follow-up with PCP. Discharge Plan Departure Patient Disposition: Home Clinical Impression: Acute exacerbation of chronic low back pain Instructions: DI for Low Back Pain Activity Restrictions/Additional Instructions: Follow up with your physician for your scheduled appointment in January. Take muscle relaxer 1 tablet every 8 hours as needed. This medication can make you sleepy do not drive, perform hazardous activities or make any major decisions while taking it. Prescription was sent to [facility] in [place]. You may continue taking Tylenol and or ibuprofen as needed for pain. Take pain medication 1 tablet every 6 hours as needed. Return to the ER for fevers greater 100.4 F, loss of bowel or bladder control, loss of sensation or inability use your lower extremity, new weakness, rapidly worsening symptoms, persistent vomiting or other new or concerning symptoms. Prescriptions: New cyclobenzaprine 10 mg tablet 10 mg PO TID PRN (Reason: muscle spasm) Qty: 14 RF: 0 No Action ibuprofen 800 mg tablet 800 mg PO TID RF: 0 acetaminophen 500 mg tablet 500 mg PO Q4-6H PRN (Reason: pain) RF: 0 meloxicam 7.5 mg Tablet 7.5 mg PO BID RF: 0 Referrals: Neville Allen MD [Primary Care Provider] - Stand Alone Forms: Work Release Note
[2020-12-29] MEDS: KETOROLAC 60 MG/2 ML VIAL 30 MG IM (21:23)
[2020-12-29] MEDS: HYDROCODONE/ACET 5/325 PREPACK 1 BOTTLE MISC (21:23)
[2020-12-29 21:33] VITALS: BP 120/90; PULSE 74; RESP 16; O2SAT 99
== END 2020-12-29 21:34 | disposition home or self-care (01) ==
PROVIDERS: Emergency Provider Emergency Medicine; PCP Family Medicine
DX: M54.5 Low back pain (principal); E66.9 Obesity, unspecified; Z68.43 Body mass index [BMI] 50.0-59.9, adult
CPT/HCPCS: 81003; 81025; 96372; 99281; 99283; J1885

== ENCOUNTER → 2021-01-15 15:31 | Outpatient (CLI) | payer OTHER, MEDICAID, SELFPAY ==
--- NOTE | 2021-01-15 | DI.RAD.S_ITS ---
PROCEDURE: XR LUMBAR SPINE 2-3V INDICATIONS: Back Pain TECHNIQUE: 3 views of the lumbar spine were acquired. COMPARISON: None. FINDINGS: Bones: No fracture. Multilevel degenerative endplate sclerosis and spurring. Diffuse facet arthropathy. Diffuse mild narrowing of the lumbar disc spaces at L3-L4, L4-L5 and L5-S1. Soft tissues: Overlying bowel gas pattern is normal. No suspicious soft tissue calcifications. IMPRESSION: Mild mid-lower lumbar spondylosis and facet arthropathy Dictated by: London Granger M.D. on 01/15/2021 at 16:37 Approved by: London Granger M.D. on 01/15/2021 at 16:38
--- NOTE | 2021-01-15 | DI.RAD.S_ITS ---
PROCEDURE: XR THORACIC SPINE 3V INDICATIONS: Back Pain TECHNIQUE: 3 views of the thoracic spine were acquired. COMPARISON: None. FINDINGS: Bones: No fracture. Multilevel degenerative endplate sclerosis and spurring. Diffuse facet arthropathy. Disc spaces appear grossly preserved Soft tissues: No paravertebral stripe thickening. IMPRESSION: Mild discogenic changes. No fracture Dictated by: London Granger M.D. on 01/15/2021 at 16:36 Approved by: London Granger M.D. on 01/15/2021 at 16:37
== END ==
PROVIDERS: PCP Family Medicine; Referring Provider Family Medicine; Visit Provider Family Medicine
DX: M54.6 Pain in thoracic spine (principal); M47.814 Spondylosis without myelopathy or radiculopathy, thoracic region; M54.5 Low back pain; M47.816 Spondylosis without myelopathy or radiculopathy, lumbar region
CPT/HCPCS: 72072; 72100

== ENCOUNTER 2021-06-21 15:30 | Emergency (ER) | payer OTHER, MEDICAID, SELFPAY ==
[2021-06-21 15:37] VITALS: BP 129/72; PULSE 71; RESP 18; TEMP 37.3; O2SAT 99; BMI 49.7
[2021-06-21] MEDS: ACETAMINOPHEN 325 MG TABLET 975 MG PO (15:43)
[2021-06-21 15:56] LABS: COVID19 -Nasal RAPID Negative (Negative)
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
== END 2021-06-21 16:19 | disposition home or self-care (01) ==
PROVIDERS: Emergency Provider Emergency Medicine; PCP Family Medicine
DX: J02.9 Acute pharyngitis, unspecified (principal); R52 Pain, unspecified; Z20.822 Contact with and (suspected) exposure to COVID-19
CPT/HCPCS: 87635; 99282; 99283; C9803

== ENCOUNTER 2023-05-14 17:41 | Emergency (ER) | payer OTHER, SELFPAY ==
[2023-05-14 17:47] VITALS: BP 150/71; PULSE 90; RESP 18; TEMP 36.4; O2SAT 100; BMI 52.2
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
[2023-05-14 21:35] VITALS: BP 134/82; PULSE 96; O2SAT 98
== END 2023-05-14 21:35 | disposition home or self-care (01) ==
PROVIDERS: Emergency Provider Emergency Medicine; PCP Family Medicine
DX: S20.222A Contusion of left back wall of thorax, initial encounter (principal); V89.2XXA Person injured in unspecified motor-vehicle accident, traffic, initial encounter; Y99.0 Civilian activity done for income or pay
CPT/HCPCS: 71046; 72070; 99283; 99284